=== PATIENT | male | born 1960 | race African-American/Black ===

== ENCOUNTER 2018-07-15 10:39 | Emergency (ER) | payer MEDICAID ==
[~2018-07-15] VITALS: Ht 177.8 cm; Wt 86.0 kg
[2018-07-15] MEDS ORDERED: KETOROLAC 30MG/ML VIAL IM ONE (12:15)
[2018-07-15 12:36] VITALS: BP 122/82
== END 2018-07-15 12:28 | disposition home or self-care (01) ==
LOC: ER 10:56
DX: S50.812A Abrasion of left forearm, initial encounter (principal); I10 Essential (primary) hypertension; Z86.73 Personal history of transient ischemic attack (TIA), and cerebral infarction without residual deficits; V49.88XA Car occupant (driver) (passenger) injured in other specified transport accidents, initial encounter; Y93.89 Activity, other specified; Y92.89 Other specified places as the place of occurrence of the external cause; Y99.8 Other external cause status
CPT/HCPCS: 96372; 99283; J1885